=== PATIENT | male | born 1985 | race Asian ===

== ENCOUNTER 2022-06-01 20:06 | Emergency (ER) | payer OTHER, SELFPAY ==
[2022-06-01 20:15] VITALS: BP 166/78; PULSE 94; RESP 20; TEMP 37; O2SAT 100
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
[2022-06-01] MEDS: TETANUS,DIPHTHERIA,AC PERTUSSIS ADULT (0.5 ML) BOOSTRIX IM (21:04)
[2022-06-01] MEDS: HYDROcodone/acetaminophen (*CRX) 5-325 MG TABLET 1 TAB PO (21:04)
[2022-06-01] MEDS: CEFUROXIME AXETIL 250 MG TABLET 500 MG PO (21:04)
== END 2022-06-01 21:23 | disposition home or self-care (01) ==
PROVIDERS: Emergency Provider Emergency Medicine
DX: T23.242A Burn of second degree of multiple left fingers (nail), including thumb, initial encounter (principal); Z23 Encounter for immunization; W39.XXXA Discharge of firework, initial encounter
CPT/HCPCS: 90471; 90715; 99283; A9270